=== PATIENT | female | born 1960 | race Caucasian/White ===

== ENCOUNTER 2020-12-26 16:33 | Inpatient (IN) | payer BC ==
--- NOTE | 2020-12-26 16:51 | ED ---
General Adult HPI - General Stated complaint: Chest Pain Time Seen by Provider: 12/26/20 16:41 - History of Present Illness Initial comments: Is a 60-year-old female to history of CAD, hypertension, hyperlipidemia, COPD and current smoker who presents emergency department as a transfer from [facility] for SVT and chest pain. The patient states that around 11:00 this morning she was at work and noticed that she was having palpitations, diaphoresis, and generalized weakness. She presented to [facility] who noted that she was in SVT. She received adenosine which converted her back to normal sinus rhythm. Shortly after being converted patient stated that she developed some pain in her thoracic back area between her shoulder blades that was similar to when she had her previous ND. EKG [facility] did not reveal any skin changes, troponin was negative. The rest her blood work was also unremarkable. She was given aspirin and sent to the emergency department here for further evaluation cardiology he now. The patient had a heart score of 5. - Related Data Home Medications Medication Instructions Recorded Confirmed Aspirin EC [Ecotrin Low Dose] 81 mg PO DAILY 12/26/20 12/26/20 L.acidoph,Paracasei, B.lactis 1 cap PO DAILY 12/26/20 12/26/20 [Probiotic] Metoprolol Succinate [Toprol XL] 25 mg PO DAILY 12/26/20 12/26/20 Rosuvastatin [Crestor] 10 mg PO DAILY 12/26/20 12/26/20 Allergies Allergy/AdvReac Type Severity Reaction Status Date / Time No Known Allergies Allergy Verified 12/26/20 17:12 Review of Systems ROS Statement: Those systems with pertinent positive or pertinent negative responses have been documented in the HPI. ROS Other: All systems not noted in ROS Statement are negative. General Exam - General Exam Comments Initial Comments: Constitutional: Awake alert Appears comfortable Head: Normocephalic atraumatic Eyes: no conjunctival injection No scleral icterus EOMI Neck: No JVD Supple Heart: Regular rate rhythm normal S1-S2 no murmurs Lungs: Clear to auscultation bilaterally No wheezing No rales Abdomen: Soft nondistended nontender Extremities: Non edematous DP pulses intact Radial pulses intact Neuro: A&Ox3 No focal neurologic deficits Psych: Appropriate mood and affect Course Vital Signs 12/26/20 16:35 Temperature 97.1 F L Pulse Rate 77 Respiratory 18 Rate Blood Pressure 148/98 O2 Sat by Pulse 99 Oximetry Medical Decision Making - Medical Decision Making This 60-year-old female who presents emergency department from [facility] for SVT and concern for ACS. Patient had a high heart score. She did complain of some mild back pain in the emergency room and however no chest pain. Repeat troponin was 0.055. Patient was started given aspirin and does not have any c urrent active chest pain. The patient is to be admitted for further monitoring and cardiac evaluation. Dr. Rosen accepts the admission. - Lab Data Result diagrams: 12/26/20 17:01 12/26/20 17:01 Lab Results 12/26/20 12/26/20 12/26/20 Range/Units 17: 17:01 17:01 WBC 8.9 (3.8-10.6) k/uL RBC 4.93 (3.80-5.40) m/uL Hgb 15.9 (11.4-16.0) gm/dL Hct 47.7 H (34.0-46.0) % MCV 96.7 (80.0-100.0) fL MCH 32.3 (25.0-35.0) pg MCHC 33.4 (31.0-37.0) g/dL RDW 13.9 (11.5-15.5) % Plt Count 184 (150-450) k/uL MPV 9.7 Neutrophils % 69 % Lymphocytes % 24 % Monocytes % 5 % Eosinophils % 1 % Basophils % 0 % Neutrophils # 6.1 (1.3-7.7) k/uL Lymphocytes # 2.1 (1.0-4.8) k/uL Monocytes # 0.4 (0-1.0) k/uL Eosinophils # 0.1 (0-0.7) k/uL Basophils # 0.0 (0-0.2) k/uL PT 10.8 (9.0-12.0) sec INR 1.0 (<1.2) APTT 22.3 (22.0-30.0) sec Sodium (137-145) mmol/L Potassium (3.5-5.1) mmol/L Chloride (98-107) mmol/L Carbon Dioxide (22-30) mmol/L Anion Gap mmol/L BUN (7-17) mg/dL Creatinine (0.52-1.04) mg/dL Est GFR (CKD-EPI)AfAm (>60 ml/min/1.73 sqM) Est GFR (CKD-EPI)NonAf (>60 ml/min/1.73 sqM) Glucose (74-99) mg/dL Calcium (8.4-10.2) mg/dL Total Bilirubin (0.2-1.3) mg/dL AST (14-36) U/L ALT (4-34) U/L Alkaline Phosphatase (38-126) U/L Troponin I 0.055 H* (0.000-0.034) ng/mL Total Protein (6.3-8.2) g/dL Albumin (3.5-5.0) g/dL 12/26/20 Range/Units 17:01 WBC (3.8-10.6) k/uL RBC (3.80-5.40) m/uL Hgb (11.4-16.0) gm/dL Hct (34.0-46.0) % MCV (80.0-100.0) fL MCH (25.0-35.0) pg MCHC (31.0-37.0) g/dL RDW (11.5-15.5) % Plt Count (150-450) k/uL MPV Neutrophils % % Lymphocytes % % Monocytes % % Eosinophils % % Basophils % % Neutrophils # (1.3-7.7) k/uL Lymphocytes # (1.0-4.8) k/uL Monocytes # (0-1.0) k/uL Eosinophils # (0-0.7) k/uL Basophils # (0-0.2) k/uL PT (9.0-12.0) sec INR (<1.2) APTT (22.0-30.0) sec Sodium 138 (137-145) mmol/L Potassium 5.3 H (3.5-5.1) mmol/L Chloride 108 H (98-107) mmol/L Carbon Dioxide 26 (22-30) mmol/L Anion Gap 4 mmol/L BUN 12 (7-17) mg/dL Creatinine 0.66 (0.52-1.04) mg/dL Est GFR (CKD-EPI)AfAm >90 (>60 ml/min/1.73 sqM) Est GFR (CKD-EPI)NonAf >90 (>60 ml/min/1.73 sqM) Glucose 82 (74-99) mg/dL Calcium 8.8 (8.4-10.2) mg/dL Total Bilirubin 0.8 (0.2-1.3) mg/dL AST 46 H (14-36) U/L ALT 17 (4-34) U/L Alkaline Phosphatase 79 (38-126) U/L Troponin I (0.000-0.034) ng/mL Total Protein 6.7 (6.3-8.2) g/dL Albumin 4.1 (3.5-5.0) g/dL Disposition Clinical Impression: Elevated troponin, SVT (supraventricular tachycardia) Disposition: ADMITTED IP TO THIS HOSP Condition: Stable Referrals: None,Stated [Primary Care Provider] - 1-2 days
[2020-12-26 17:09] LABS: Basophils % (A) 0 %; Eosinophils # (A) 0.1 k/uL (0-0.7); Eosinophils % (A) 1 %; HCT 47.7 % (34.0-46.0); HGB 15.9 gm/dL (11.4-16.0); Lymphocytes # (A) 2.1 k/uL (1.0-4.8); Lymphocytes % (A) 24 %; MCH 32.3 pg (25.0-35.0); MCHC 33.4 g/dL (31.0-37.0); MCV 96.7 fL (80.0-100.0); Mean Platelet Volume 9.7; Monocytes # (A) 0.4 k/uL (0-1.0); Monocytes % (A) 5 %; Neutrophils # (A) 6.1 k/uL (1.3-7.7); Neutrophils % (A) 69 %; Platelet Count 184 k/uL (150-450); RBC 4.93 m/uL (3.80-5.40); RDW 13.9 % (11.5-15.5); WBC 8.9 k/uL (3.8-10.6)
[2020-12-26 17:18] LABS: ALT 17 U/L (4-34); AST 46 U/L (14-36); African American GFR (CKD) >90 (>60 ml/min/1.73 sqM); Albumin 4.1 g/dL (3.5-5.0); Alkaline Phosphatase 79 U/L (38-126); Anion Gap 4 mmol/L; Blood Urea Nitrogen 12 mg/dL (7-17); Calcium 8.8 mg/dL (8.4-10.2); Carbon Dioxide 26 mmol/L (22-30); Chloride 108 mmol/L (98-107); Glucose 82 mg/dL (74-99); Non-African American GFR(CKD) >90 (>60 ml/min/1.73 sqM); Sodium 138 mmol/L (137-145); Total Bilirubin 0.8 mg/dL (0.2-1.3); Total Protein 6.7 g/dL (6.3-8.2)
[2020-12-26 17:21] LABS: Potassium 5.3 mmol/L (3.5-5.1)
[2020-12-26 17:28] LABS: Partial Thromboplastin Time 22.3 sec (22.0-30.0); Prothrombin Time 10.8 sec (9.0-12.0)
[2020-12-26] MEDS ORDERED: NITROGLYCERIN SL TABS 0.4 MG TAB SUBLINGUAL PRN (18:43)
[2020-12-27] MEDS ORDERED: IPRATROPIUM-ALBUTEROL 3 ML NEB INHALATION PRN (00:25)
--- NOTE | 2020-12-27 00:33 | P.HPIM ---
History of Present Illness H&P Date: 12/26/20 Chief Complaint: SVT, rule out underlying cardiac causes 60 year old female , with history of CAD, HLD, HTN Patient was transferred to our facility to rule out acute coronary syndrome. She described that she was at her baseline status of health up until yesterday. On day of admission while at work at around 11 in the morning she started having palpitations associated with some trouble breathing and diaphoresis she felt generalized weakness for which her coworkers and activated EMS and she was taken to [facility] which she was given adenosine and was able to abort the event she converted into normal sinus rhythm however after that episode she started experiencing some pain between her shoulder blades she described that it reminded her of the event of heart attack that she had years ago. EKG did not show any acute ST changes troponins was negative [facility] however she was transferred to our facility for further evaluation Upon arrival here patient was chest pain-free denies any shortness of breath denies any new complaints denies any headache vision changes denies any focal neuro deficits denies any coughing shortness of breath denies any abdominal pain nausea vomiting changes in bowel or urinary habits She does admit to drinking a lot of coffee and that sometimes he would experience palpitations but nothing like she experienced today Blood work showed elevated troponins and potassium 5.3 but otherwise overall unremarkable Patient does admit to drinking a lot of coffee and tobacco smoking but denies any illegal drugs Patient has strong cardiac history from her father's side of the family, her mom has diabetes Currently she feels completely fine and she wants to sleep as she is tired she has sleep apnea and she didn't bring her machine I offered her to use one of our machines however she declined at this time Review of Systems Pertinent positives as noted in HPI. All other systems were reviewed and are negative Past Medical History Past Medical History: Coronary Artery Disease (CAD), COPD, Myocardial Infarction ([place]), Sleep Apnea/CPAP/BIPAP Last Myocardial Infarction Date:: 2014 History of Any Multi-Drug Resistant Organisms: None Reported Past Surgical History: Heart Catheterization Additional Past Surgical History / Comment(s): no stents Past Anesthesia/Blood Transfusion Reactions: Previous Problems w/ Anesthesia Additional Past Anesthesia/Blood Transfusion Reaction / Comment(s): hard to wake after anesthesia. No blood reactions. Past Psychological History: No Psychological Hx Reported Smoking Status: Current every day smoker Past Alcohol Use History: None Reported Additional Past Alcohol Use History / Comment(s): 1-2 pack a day smoker Past Drug Use History: None Reported - Past Family History Father Family Medical History: Cancer, Myocardial Infarction ([place]) Additional Family Medical History / Comment(s): lung ca Mother Family Medical History: Diabetes Mellitus Additional Family Medical History / Comment(s): brain bleed Son(s) Family Medical History: Diabetes Mellitus Medications and Allergies Home Medications Medication Instructions Recorded Confirmed Type Aspirin EC [Ecotrin Low Dose] 81 mg PO DAILY 12/26/20 12/26/20 History L.acidoph,Paracasei, B.lactis 1 cap PO DAILY 12/26/20 12/26/20 History [Probiotic] Metoprolol Succinate [Toprol XL] 25 mg PO DAILY 12/26/20 12/26/20 History Rosuvastatin [Crestor] 10 mg PO DAILY 12/26/20 12/26/20 History Allergies Allergy/AdvReac Type Severity Reaction Status Date / Time No Known Allergies Allergy Verified 12/26/20 17:12 Physical Exam Vitals: Vital Signs Temp Pulse Pulse Resp BP BP Pulse Ox 12/26/20 21:00 97.8 F 71 20 116/77 96 12/26/20 18:30 67 18 128/94 96 12/26/20 18:00 71 18 119/95 93 L 12/26/20 17:30 67 16 128/80 97 12/26/20 17:00 70 18 148/98 12/26/20 16:44 148/98 98 12/26/20 16:35 97.1 F L 77 18 148/98 99 Intake and Output 12/26/20 12/26/20 12/26/20 06:59 14:59 22:59 Intake Total 240 Balance 240 Intake: Oral 240 Other: Voiding Method Toilet # Voids 1 Weight 93.44 kg Constitutional: No acute distress, conversant, pleasant Eyes: Anicteric sclerae, moist conjunctiva, Pupils equal round reactive to light ENMT: NC/AT Oropharynx clear, no erythema, or exudates Neck: Supple, FROM, no masses, or JVD No carotid bruits No thyromegaly Lungs: Clear to auscultation Clear to percussion Normal respiratory effort, no accessory muscle use Cardiovascular: Heart regular in rate and rhythm, No murmurs, gallops, or rubs No peripheral edema Abdominal: Soft Nontender, no guarding, rebound or rigidity Abdomen moving with respiration Normoactive bowel sounds No hepatomegaly, No splenomegaly No palpable mass No abdominal wall hernia noted Skin: Normal temperature, tone, texture, turgor No induration No subcutaneous nodules No rash, lesions No ulcers Extremities: No digital cyanosis No clubbing Pedal pulses intact and symmetrical Radial pulses intact and symmetrical No calf tenderness Psychiatric: Alert and oriented to person, place and time Appropriate affect fair judgement Neuro Muscles Strength 5/5 in all 4 extremities Sensation to light touch grossly present throughout Cranial nerves II-XII grossly intact No focal sensory deficits Lymphatics: no palpable cervical or supraclavicular , or inguinal lymph nodes Results CBC & Chem 7: 12/26/20 17:01 12/26/20 17:01 Labs: Abnormal Lab Results - Last 24 Hours (Table) 12/26/20 12/26/20 12/26/20 Range/Units 17:01 17:01 17:01 Hct 47.7 H (34.0-46.0) % Potassium 5.3 H (3.5-5.1) mmol/L Chloride 108 H (98-107) mmol/L AST 46 H (14-36) U/L Troponin I 0.055 H* (0.000-0.034) ng/mL 12/26/20 Range/Units 19:42 Hct (34.0-46.0) % Potassium (3.5-5.1) mmol/L Chloride (98-107) mmol/L AST (14-36) U/L Troponin I 0.058 H* (0.000-0.034) ng/mL Thrombosis Risk Factor Assmnt - Choose All That Apply Each Factor Represents 1 point: Age 41-60 years, Obesity (BMI >25) Thrombosis Risk Factor Assessment Total Risk Factor Score: 2 Thrombosis Risk Factor Assessment Level: Low Risk Assessment and Plan Assessment: SVT Elevated troponins rule out acute coronary syndrome Trend troponins EKG no acute ST changes however poor progression of R wave Cardiac consult Aspirin and statin Nitro for chest pain IV fluid hydration with saline panel monitor Borderline high potassium, recheck levels stat Chronic conditions Hypertension and hyperlipidemia resume home meds COPD currently compensated DuoNeb's when necessary Patient counseled to quit smoking CODE STATUS: Full code DVT prophylaxis: *Heparin subcu 3 times a day Discussed with: Patient, ER, RN Anticipated length of stay less than than [address]: Home A total of 65 minutes was spent on the care of this complex patient more than 50% of the time was spent in counseling and care coordination.
[2020-12-27] MEDS: SODIUM CHLORIDE 0.9% 1,000 ML IV SCH ×2 (00:34→15:02)
[2020-12-27 08:07] LABS: Basophils % (A) 0 %; Eosinophils # (A) 0.2 k/uL (0-0.7); Eosinophils % (A) 2 %; HCT 44.7 % (34.0-46.0); HGB 14.9 gm/dL (11.4-16.0); Lymphocytes # (A) 2.7 k/uL (1.0-4.8); Lymphocytes % (A) 30 %; MCH 32.5 pg (25.0-35.0); MCHC 33.3 g/dL (31.0-37.0); MCV 97.7 fL (80.0-100.0); Mean Platelet Volume 8.8; Monocytes # (A) 0.4 k/uL (0-1.0); Monocytes % (A) 5 %; Neutrophils # (A) 5.5 k/uL (1.3-7.7); Neutrophils % (A) 61 %; Platelet Count 172 k/uL (150-450); RBC 4.58 m/uL (3.80-5.40); RDW 13.7 % (11.5-15.5)
[2020-12-27 08:13] LABS: African American GFR (CKD) >90 (>60 ml/min/1.73 sqM); Anion Gap 5 mmol/L; Blood Urea Nitrogen 12 mg/dL (7-17); Calcium 8.6 mg/dL (8.4-10.2); Carbon Dioxide 24 mmol/L (22-30); Chloride 110 mmol/L (98-107); Glucose 107 mg/dL (74-99); Non-African American GFR(CKD) >90 (>60 ml/min/1.73 sqM); Potassium 4.2 mmol/L (3.5-5.1); Sodium 139 mmol/L (137-145)
[2020-12-27] MEDS ORDERED: ASPIRIN 325 MG TAB PO SCH (09:00)
[2020-12-27] MEDS: ATORVASTATIN 20 MG TAB PO SCH (09:08)
[2020-12-27] MEDS: HEPARIN SODIUM,PORCINE/PF 5,000 UNIT/0.5 ML SYRINGE SQ SCH ×3 (09:08→22:55)
--- NOTE | 2020-12-27 10:50 | P.CRDCN ---
History of Present Illness Consult date: 12/27/20 History of present illness: HISTORY OF PRESENT ILLNESS: This is a 60-year-old female with a past medical history significant for nonobstructive coronary artery disease, hypertension, hyperlipidemia, COPD, and nicotine dependence. Patient does not follow with a document advisor. We have been asked to see the patient in consultation for SVT. Patient examined at the bedside. Patient states she was at work yesterday when she again having palpitations around 11 AM. She states she felt very diaphoretic and felt like her legs were "like jello". She states she left work and went to the hospital for evaluation. The patient was found to be in SVT. The patient received adenosine with conversion to normal sinus rhythm. Shortly afterwards, the pat ieliliane began having discomfort in between her shoulder blades. She states that she had a heart attack in 2014 and the pain felt similar to the pain she felt at that time. She denied having any overt chest pain or discomfort. She states the pain lasted for about two hours and was relieved with Dilaudid. She denies shortness of breath. Denies dizziness or lightheadedness. Telemetry this morning reveals sinus mechanism. Patient states she was supposed to have a stress test in the near future that was ordered by her primary care physician. EKG performed at outside facility revealed SVT. Repeat EKG revealed sinus mechanism with flattened T waves Laboratory data: WBC 9.0. Hemoglobin 14.9. Platelet count 172. Sodium 139. Potassium 4.2. BUN 12. Creatinine 0.60. Current home cardiac medications include Crestor 10 mg daily, metoprolol succinate 25 mg daily, aspirin 81 mg daily Cardiac catheterization history: September 2014 at [facility] revealing 30% stenosis of LAD and 20% stenosis of left circumflex. Ejection fraction 50-55%. REVIEW OF SYSTEMS: At the time of my exam: CONSTITUTIONAL: Denies fever or chills. HEENT: Denies blurred vision, vision changes, or eye pain. Denies hemoptysis CARDIOVASCULAR: Denies chest pain. Denies orthopnea. Denies PND. Denies palpitations RESPIRATORY: Denies shortness of breath. GASTROINTESTINAL: Denies abdominal pain. Denies nausea or vomiting. HEMATOLOGIC: Denies bleeding disorders. GENITOURINARY: Denies any blood in urine. SKIN: Denies pruitis. Denies rash. PHYSICAL EXAM: VITAL SIGNS: Reviewed. GENERAL: Well-developed in no acute distress. HEENT: Head is normocephalic. Pupils are equal, round. Sclerae anicteric. Mucous membranes of the mouth are moist. Neck supple. No JVD or thyromegaly LUNGS: Respirations even and unlabored. Lungs with decreased air exchange. HEART: Regular rate and rhythm. S1 and S2 heard. ABDOMEN: Soft. Nondistended. Nontender. EXTREMITIES: Normal range of motion. No clubbing or cyanosis. Peripheral pulses intact. No lower extremity edema NEUROLOGIC: Awake and alert. Oriented x 3. ASSESSMENT: SVT, converted to SR with adenosine Nonobstructive coronary artery disease Abnormal troponins, not suggestive of ACS Hypertension Hyperlipidemia COPD Nicotine dependence PLAN: An acute coronary event has been ruled out Obtain 2-D echo to assess cardiac structure and function Resume home cardiac medications Continue telemetry monitoring Smoking cessation recommended Patient to undergo stress echo today Further recommendations pending patient course Nurse practitioner note has been reviewed by physician. Signing provider agrees with the documented findings, assessment, and plan of care. Past Medical History Past Medical History: Coronary Artery Disease (CAD), COPD, Myocardial Infarction ([place]), Sleep Apnea/CPAP/BIPAP Last Myocardial Infarction Date:: 2014 History of Any Multi-Drug Resistant Organisms: None Reported Past Surgical History: Heart Catheterization Additional Past Surgical History / Comment(s): no stents Past Anesthesia/Blood Transfusion Reactions: Previous Problems w/ Anesthesia Additional Past Anesthesia/Blood Transfusion Reaction / Comment(s): hard to wake after anesthesia. No blood reactions. Past Psychological History: No Psychological Hx Reported Smoking Status: Current every day smoker Past Alcohol Use History: None Reported Additional Past Alcohol Use History / Comment(s): 1-2 pack a day smoker Past Drug Use History: None Reported - Past Family History Father Family Medical History: Cancer, Myocardial Infarction ([place]) Additional Family Medical History / Comment(s): lung ca Mother Family Medical History: Diabetes Mellitus Additional Family Medical History / Comment(s): brain bleed Son(s) Family Medical History: Diabetes Mellitus Medications and Allergies Home Medications Medication Instructions Recorded Confirmed Type Aspirin EC [Ecotrin Low Dose] 81 mg PO DAILY 12/26/20 12/26/20 History L.acidoph,Paracasei, B.lactis 1 cap PO DAILY 12/26/20 12/26/20 History [Probiotic] Metoprolol Succinate [Toprol XL] 25 mg PO DAILY 12/26/20 12/26/20 History Rosuvastatin [Crestor] 10 mg PO DAILY 12/26/20 12/26/20 History Allergies Allergy/AdvReac Type Severity Reaction Status Date / Time No Known Allergies Allergy Verified 12/26/20 17:12 Physical Exam Vitals: Vital Signs Temp Pulse Pulse Resp BP BP Pulse Ox 12/27/20 08:00 97.9 F 61 16 113/75 96 12/27/20 04:00 97.8 F 70 20 111/73 94 L 12/27/20 01:34 77 18 100/69 94 L 12/27/20 00:00 97.7 F 63 17 95/59 97 12/26/20 21:00 97.8 F 71 20 116/77 96 12/26/20 18:30 67 18 128/94 96 12/26/20 18:00 71 18 119/95 93 L 12/26/20 17:30 67 16 128/80 97 12/26/20 17:00 70 18 148/98 12/26/20 16:44 148/98 98 12/26/20 16:35 97.1 F L 77 18 148/98 99 Intake and Output 12/26/20 12/27/20 12/27/20 22:59 06:59 14:59 Intake Total 240 240 360 Balance 240 240 360 Intake: Oral 240 240 360 Other: Voiding Method Toilet Toilet # Voids 1 1 Weight 93.44 kg 92.4 kg Results 12/27/20 07:38 12/27/20 07:38 Cardiac Enzymes 12/26/20 12/26/20 12/26/20 Range/Units 17:01 17:01 19:42 AST 46 H (14-36) U/L Troponin I 0.055 H* 0.058 H* (0.000-0.034) ng/mL 12/26/20 Range/Units 22:54 AST (14-36) U/L Troponin I 0.039 H* (0.000-0.034) ng/mL Coagulation 12/26/20 Range/Units 17:01 PT 10.8 (9.0-12.0) sec APTT 22.3 (22.0-30.0) sec CBC 12/26/20 12/27/20 Range/Units 17:01 07:38 WBC 8.9 9.0 (3.8-10.6) k/uL RBC 4.93 4.58 (3.80-5.40) m/uL Hgb 15.9 14.9 (11.4-16.0) gm/dL Hct 47.7 H 44.7 (34.0-46.0) % Plt Count 184 172 (150-450) k/uL Comprehensive Metabolic Panel 12/26/20 12/27/20 12/27/20 Range/Units 17:01 00:48 07:38 Sodium 138 139 (137-145) mmol/L Potassium 5.3 H 3.6 4.2 (3.5-5.1) mmol/L Chloride 108 H 110 H (98-107) mmol/L Carbon Dioxide 26 24 (22-30) mmol/L BUN 12 12 (7-17) mg/dL Creatinine 0.66 0.60 (0.52-1.04) mg/dL Glucose 82 107 H (74-99) mg/dL Calcium 8.8 8.6 (8.4-10.2) mg/dL AST 46 H (14-36) U/L ALT 17 (4-34) U/L Alkaline Phosphatase 79 (38-126) U/L Total Protein 6.7 (6.3-8.2) g/dL Albumin 4.1 (3.5-5.0) g/dL Current Medications Generic Name Dose Route Start Last Admin Trade Name Freq PRN Reason Stop Dose Admin Albuterol/Ipratropium 3 ml 12/27/20 00:25 Ipratropium-Albuterol 3 Ml Neb INHALATION RT-QID PRN Shortness Of Breath Or Wheezing Aspirin 325 mg 12/27/20 09:00 12/27/20 09:08 Aspirin 325 Mg Tab PO 325 mg DAILY SOHEILA Administration Atorvastatin Calcium 20 mg 12/27/20 09:00 12/27/20 09:08 Atorvastatin 20 Mg Tab PO 20 mg DAILY SOHEILA Administration Heparin Sodium (Porcine) 5,000 unit 12/27/20 08:00 12/27/20 09:08 Heparin Sodium,Porcine/Pf 5,000 Unit/0.5 Ml Syringe SQ 5,000 unit Q8HR SOHEILA Administration Sodium Chloride 1,000 mls @ 75 mls/hr 12/27/20 00:30 12/27/20 00:34 Saline 0.9% IV 75 mls/hr .[id number] SOHEILA Administration Metoprolol Succinate 25 mg 12/27/20 09:00 Metoprolol Succinate (Er) 25 Mg Tab.Er.24h PO DAILY SOHEILA Nitroglycerin 0.4 mg 12/26/20 18:43 Nitroglycerin Sl Tabs 0.4 Mg Tab SUBLINGUAL Q5M PRN Chest Pain Intake and Output 12/26/20 12/27/20 12/27/20 22:59 06:59 14:59 Intake Total 240 240 360 Balance 240 240 360 Intake: Oral 240 240 360 Other: Voiding Method Toilet Toilet # Voids 1 1 Weight 93.44 kg 92.4 kg 12/27/20 07:38 12/27/20 07:38
[2020-12-27] MEDS ORDERED: DOBUTamine DRIP for NUC MED 500 MG in DEXTROSE/WATER 1 250ML.BAG IV PRN (12:24)
--- NOTE | 2020-12-27 12:57 | ECHOF ---
Referral Reason:LV function MEASUREMENTS -------- HEIGHT: 167.6 cm WEIGHT: 92.1 kg BP: RVIDd: 2.5 cm (< 3.3) IVSd: 1.1 cm (0.6 - 1.1) LVIDd: 3.9 cm (3.9 - 5.3) LVPWd: 1.3 cm (0.6 - 1.1) IVSs: 1.3 cm LVIDs: 2.1 cm LVPWs: 1.3 cm Ao Diam: 3.1 cm (2.0 - 3.7) AV Cusp: 2.1 cm (1.5 - 2.6) LA Diam: 3.7 cm (2.7 - 3.8) MV EXCURSION: 8.482 mm (> 18.000) MV EF SLOPE: 58 mm/s (70 - 150) EPSS: 1.8 cm MV E Romain: 0.60 m/s MV DecT: 215 ms MV A Romain: 0.57 m/s MV E/A Ratio: 1.07 RAP: 5.00 mmHg RVSP: 10.17 mmHg FINDINGS -------- This was a technically difficult study with suboptimal views. The left ventricular size is normal. There is mild concentric left ventricular hypertrophy. Overa ll left ventricular systolic function is normal with, an EF between 55 - 60 %. The right ventricle is normal in size. The left atrial size is normal. The right atrial size is normal. The aortic valve is trileaflet and appears structurally normal. The mitral valve is normal. There is trace mitral regurgitation. The tricuspid valve appears structurally normal. Trace tricuspid regurgitation present. Right sergio tricular systolic pressure is normal at < 35 mmHg. There is no pulmonic regurgitation present. The aortic root size is normal. Normal inferior vena cava with normal inspiratory collapse consistent with estimated right atrial pre ssure of 5 mmHg. There is no pericardial effusion. CONCLUSIONS -------- 1. This was a technically difficult study with suboptimal views. 2. The left ventricular size is normal. 3. There is mild concentric left ventricular hypertrophy. 4. Overall left ventricular systolic function is normal with, an EF between 55 - 60 %. 5. There is trace mitral regurgitation. 6. Trace tricuspid regurgitation present. 7. There is no pericardial effusion. FIELD HAULER: Massiel Hernandez [facility]
--- NOTE | 2020-12-27 13:29 | P.PN ---
Subjective Progress Note Date: 12/27/20 Pt doing well today, with resolution of chest pressure, and no further palps. Seen by cardiology, plan for stress test today. Objective - Vital Signs Vital signs: Vital Signs Temp 97.9 F 12/27/20 08:00 Pulse 61 12/27/20 08:00 Resp 16 12/27/20 08:00 BP 113/75 12/27/20 08:00 Pulse Ox 96 12/27/20 08:00 Intake & Output 12/26/20 12/27/20 12/27/20 18:59 06:59 18:59 Intake Total 480 360 Balance 480 360 Weight 93.44 kg 92.4 kg 92.4 kg Intake: Oral 480 360 Other: Voiding Method Toilet # Voids 1 - Exam Gen: awake, alert HEENT: normocephalic, atraumatic, good hearing acuity, moist mucous membranes Resp: good air exchange, breathing comfortably with no accessory muscle use CVS: good distal perfusion x 4, GI: soft, NTTP, ND : no SPT, no CVAT, sigala catheter not present MSK: no pitting edema, no clubbing Neuro: non-focal, moving all extremities Psych: cooperative, euthymic mood - Labs CBC & Chem 7: 12/27/20 07:38 12/27/20 07:38 Labs: Abnormal Lab Results - Last 24 Hours (Table) 12/26/20 12/26/20 12/26/20 Range/Units 17:01 17:01 17:01 Hct 47.7 H (34.0-46.0) % Potassium 5.3 H (3.5-5.1) mmol/L Chloride 108 H (98-107) mmol/L Glucose (74-99) mg/dL AST 46 H (14-36) U/L Troponin I 0.055 H* (0.000-0.034) ng/mL 12/26/20 12/26/20 12/27/20 Range/Units 19:42 22:54 07:38 Hct (34.0-46.0) % Potassium (3.5-5.1) mmol/L Chloride 110 H (98-107) mmol/L Glucose 107 H (74-99) mg/dL AST (14-36) U/L Troponin I 0.058 H* 0.039 H* (0.000-0.034) ng/mL Assessment and Plan Assessment: SVT Elevated troponins rule out acute coronary syndrome Trend troponins EKG no acute ST changes however poor progression of R wave Cardiac consult Stress test planned today Aspirin and statin Nitro for chest pain 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
[2020-12-27] MEDS: METOPROLOL SUCCINATE (ER) 25 MG TAB.ER.24H PO SCH (15:45)
[2020-12-27 20:30] LABS: Chol/HDL Ratio 2.36; Cholesterol 132 mg/dL (0-200); LDL Cholesterol,Calculated 65.2 mg/dL (0.0-131.0)
[2020-12-28 05:13] VITALS: RESP 18
[2020-12-28] MEDS: SODIUM CHLORIDE 0.9% 1,000 ML IV SCH (06:01)
[2020-12-28] MEDS ORDERED: ASPIRIN 81 MG PO SCH (09:00)
[2020-12-28] MEDS: ATORVASTATIN 20 MG TAB PO SCH (09:45)
[2020-12-28] MEDS: METOPROLOL SUCCINATE (ER) 25 MG TAB.ER.24H PO SCH (09:45)
[2020-12-28] MEDS: HEPARIN SODIUM,PORCINE/PF 5,000 UNIT/0.5 ML SYRINGE SQ SCH (09:45)
[2020-12-28 10:12] VITALS: TEMP 97.9
[2020-12-28 12:03] VITALS: BP 131/75; PULSE 54
--- NOTE | 2020-12-28 12:07 | ECHOS ---
STRESS ECHOCARDIOGRAM INDICATIONS: Chest pain BASELINE HEART RATE: 67 BASELINE BLOOD PRESSURE: 94/54 MAXIMUM HEART RATE: 144 MAXIMUM BLOOD PRESSURE: 137/63 85% MPHR: 137 100% MPHR: 161 METS: NA MAXIMUM STAGE REACHED: NA TOTAL EXERCISE TIME: 10:10 CLINICAL INFORMATION: Baseline EKG revealed [normal sinus rhythm with poor R-wave progression over precordial leads.] Baseline EKG revealed normal sinus rhythm without significant ST and T-wave changes. With dobutamine administration, the heart rate went up to 144 beats per minute, which is more than 85% of predicted maximal. Rare PVCs were noted. The patient did not have any arrhythmia. There were no EKG changes to indicate ischemia. By EKG criteria, this is an unremarkable dobutamine stress test. Baseline echo images revealed normal wall motion and wall thickening of all segments. With dobutamine administration as per protocol, there was a progressive increase in contractility noted, suggesting that there is no evidence to suggest any ischemia on this dobutamine stress echo. FINAL IMPRESSION: 1. By EKG criteria, this is an unremarkable dobutamine stress test with mild resting EKG changes. Rare isolated PVCs were noted. 2. Normal dobutamine stress echocardiogram without evidence of ischemia. MMODL / IJN: [id number] /
--- NOTE | 2020-12-28 12:44 | P.PN ---
Subjective Progress Note Date: 12/28/20 HISTORY OF PRESENT ILLNESS: This is a 60-year-old female with a past medical history significant for nonobstructive coronary artery disease, hypertension, hyperlipidemia, COPD, and nicotine dependence. 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 We have been asked to see the patient in consultation for SVT. Patient examined at the bedside. Patient states she was at work yesterday when she again having palpitations around 11 AM. She states she felt very diaphoretic and felt like her legs were "like jello". She states she left work and went to the hospital for evaluation. The patient was found to be in SVT. The patient received adenosine with conversion to normal sinus rhythm. Shortly afterwards, the patient began having discomfort in between her shoulder blades. She states that she had a heart attack in 2014 and the pain felt similar to the pain she felt at that time. She denied having any overt chest pain or discomfort. She states the pain lasted for about two hours and was relieved with Dilaudid. She denies shortness of breath. Denies dizziness or lightheadedness. Telemetry this morning reveals sinus mechanism. Patient states she was supposed to have a stress test in the near future that was ordered by her primary care physician. EKG performed at outside facility revealed SVT. Repeat EKG revealed sinus mechanism with flattened T waves Laboratory data: WBC 9.0. Hemoglobin 14.9. Platelet count 172. Sodium 139. Potassium 4.2. BUN 12. Creatinine 0.60. Current home cardiac medications include Crestor 10 mg daily, metoprolol succinate 25 mg daily, aspirin 81 mg daily Cardiac catheterization history: September 2014 at [facility] revealing 30% stenosis of LAD and 20% stenosis of left circumflex. Ejection fraction 50-55%. 12/28/2020 Patient examined this morning at the bedside. She denies chest pain or pressure. Denies shortness of breath. No further episodes of SVT. Telemetry reveals sinus mechanism. Echocardiogram completed reveals ejection fraction 55- 60%. Trace mitral regurgitation. Trace tricuspid regurgitation. Patient underwent dobutamine stress test which was negative for ischemia. PHYSICAL EXAM: VITAL SIGNS: Reviewed. GENERAL: Well-developed in no acute distress. HEENT: Head is normocephalic. Pupils are equal, round. Sclerae anicteric. Mucous membranes of the mouth are moist. Neck supple. No JVD or thyromegaly LUNGS: Respirations even and unlabored. Lungs with decreased air exchange. HEART: Regular rate and rhythm. S1 and S2 heard. ABDOMEN: Soft. Nondistended. Nontender. EXTREMITIES: Normal range of motion. No clubbing or cyanosis. Peripheral pulses intact. No lower extremity edema NEUROLOGIC: Awake and alert. Oriented x 3. ASSESSMENT: SVT, converted to SR with adenosine Nonobstructive coronary artery disease Abnormal troponins, not suggestive of ACS Hypertension Hyperlipidemia COPD Nicotine dependence PLAN: Continue current cardiac medications Patient is stable for discharge home today. She is to follow up on an outpatient basis with Dr. Lau Nurse practitioner note has been reviewed by physician. Signing provider agrees with the documented findings, assessment, and plan of care. Objective - Vital Signs Vital signs: Vital Signs Temp 97.9 F 12/28/20 08:00 Pulse 54 L 12/28/20 12:00 Resp 18 12/28/20 12:00 BP 131/75 12/28/20 12:00 Pulse Ox 94 L 12/28/20 12:00 Intake & Output 12/27/20 12/28/20 12/28/20 18:59 06:59 18:59 Intake Total 930 240 Output Total 300 Balance 930 -300 240 Weight 92.4 kg 93.6 kg Intake: Intake, IV Titration 450 Amount Sodium Chloride 0.9% 1, 450 000 ml @ 75 mls/hr IV . [id number] SOHEILA Rx#:[id number] Oral 480 240 Output: Urine 300 Other: # Voids 1 - Labs CBC & Chem 7: 12/27/20 07:38 12/27/20 07:38
--- NOTE | 2020-12-28 13:24 | P.DS ---
Providers Date of admission: 12/26/20 18:44 Expected date of discharge: 12/28/20 Attending physician: Thony Rosen MD Consults: 12/26/20 18:43 Consult Physician Urgent Consulting Provider: Alan Noguera Consult Reason/Comments: Elevated troponin, SVT Do you want consulting provider notified?: Yes Primary care physician: Stated None Hospital Course: SVT Elevated troponins rule out acute coronary syndrome Patient presented with SVT from outside hospital, which resolved to sinus rhythm with the use of adenosine. Patient was transferred to a facility due to chest pressure surrounding this episode of SVT patient's troponins were trended and were negative. Cardiology was consult and recommended stress test. Dobutamine stress echo was performed and was negative for inducible ischemia. Patient's medications were continued including aspirin, statin, metoprolol. Patient will follow-up with cardiology in the outpatient setting for further management. Assessment: Gen: awake, alert HEENT: normocephalic, atraumatic, good hearing acuity, moist mucous membranes Resp: good air exchange, breathing comfortably with no accessory muscle use CVS: good distal perfusion x 4, GI: soft, NTTP, ND : no SPT, no CVAT, sigala catheter not present MSK: no pitting edema, no clubbing Neuro: non-focal, moving all extremities Psych: cooperative, euthymic mood Patient Condition at Discharge: Good Plan - Discharge Summary Discharge Rx Participant: No New Discharge Prescriptions: Continue Metoprolol Succinate [Toprol XL] 25 mg PO DAILY Aspirin EC [Ecotrin Low Dose] 81 mg PO DAILY L.acidoph,Paracasei, B.lactis [Probiotic] 1 cap PO DAILY Rosuvastatin [Crestor] 10 mg PO DAILY Discharge Medication List Aspirin EC [Ecotrin Low Dose] 81 mg PO DAILY 12/26/20 [History] L.acidoph,Paracasei, B.lactis [Probiotic] 1 cap PO DAILY 12/26/20 [History] Metoprolol Succinate [Toprol XL] 25 mg PO DAILY 12/26/20 [History] Rosuvastatin [Crestor] 10 mg PO DAILY 12/26/20 [History] Follow up Appointment(s)/Referral(s): None,Stated [Primary Care Provider] - 1-2 days (Please follow-up with your primary care provider.) Alan Noguera MD [STAFF PHYSICIAN] - 1 Week (Cardiology office will call to make a follow-up appointment with Dr. Noguera.) Patient Instructions/Handouts: Supraventricular Tachycardia (DC) Discharge Disposition: HOME SELF-CARE
== END 2020-12-28 13:42 | disposition home or self-care (01) | DRG 310 ==
LOC: EC 16:33 → 3SCARD 18:44
PROVIDERS: ADMIT Internal Medicine; ATTEND Internal Medicine
DX: I47.1 Supraventricular tachycardia (principal); E78.5 Hyperlipidemia, unspecified; I25.10 Atherosclerotic heart disease of native coronary artery without angina pectoris; J44.9 Chronic obstructive pulmonary disease, unspecified; I10 Essential (primary) hypertension; M54.9 Dorsalgia, unspecified; R77.8 Other specified abnormalities of plasma proteins; F17.210 Nicotine dependence, cigarettes, uncomplicated; Z71.6 Tobacco abuse counseling; I25.2 Old myocardial infarction; Z79.82 Long term (current) use of aspirin; Z79.899 Other long term (current) drug therapy; G47.33 Obstructive sleep apnea (adult) (pediatric); Z82.49 Family history of ischemic heart disease and other diseases of the circulatory system; Z83.3 Family history of diabetes mellitus; Z80.1 Family history of malignant neoplasm of trachea, bronchus and lung
CPT/HCPCS: 36415; 80048; 80053; 80061; 84132; 84484; 85025; 85610; 85730; 93005; 93306; 93351; 99285